=== PATIENT | male | born 1970 | race Caucasian/White ===

== ENCOUNTER 2024-07-15 01:05 | Day surgery (SDC) | payer OTHER, SELFPAY ==
[2024-07-01 13:20] VITALS: BMI 31.2
--- OUTSIDE RECORDS SUMMARY | 2024-07-15 01:08 | XMS_ITS | Continuity of Care Document ---
Author Organization [facility] Address [address] [place] [address] [address] [place] [address] Phone Care Team Providers Care Crm System Administrator Name Role Phone Peyman Martino Unavailable Unavailable Advance Directives Directive Yes / No Effective Date File Name No Information Encounters Encounter Description Practice Location Reason(s) For Visit Diagnoses Date Provider Providers Copied on Encounter [facility], [address] [place] [address] [address], [place], [place], [id number], [place] tel:[phone] [facility] No Information [phone] Doisy Edward. [address] , [address], [place], [address], [place]. tel:[phone] Family History Family Member Type Diagnosis Age At Onset No Information Payers Payer name Insurance type Covered democrat ID Authoriza tion(s) [employer] [id number] Social History Type Description Quantity Date Captured Comments Sex Male Smoking Status No Information Chief Complaint And Reason For Visit No Information Reason For Referral Reason For Referral No Information History Of Present Illness Encounter Date Complaint History Of Prese nt Illness No Information Functional Status Date Functional Assessmen t No Information Instructions Date Instruction Additional Infor mation No Information Assessments Type Assessment Date No Information Patient Care Teams Name Effective Dates (start - stop) Status Members No Information
[2024-07-15 10:02] VITALS: BP 161/87; PULSE 64; RESP 18; TEMP 36.6; O2SAT 100
--- NOTE | 2024-07-15 10:13 | P.PNAN_ITS ---
Anes - Initial Pre Proc Eval Procedure: Operation Date: 07/15/24 11:00 Proposed Procedures p Colonoscopy - Ezra Persaud MD Date/Time: 07/15/24 10:13 Surgeon: Ezra Persaud MD Pre Op Diagnosis: fecal abnormalities Patient Data Age: 54 Gender: M Height: 1.83 m Weight: 103.1 kg Last Vital Signs Temp 36.6 C 07/15/24 10:02 Pulse 64 07/15/24 10:02 Resp 18 07/15/24 10:02 BP 161/87 H 07/15/24 10:02 Pulse Ox 100 07/15/24 10:02 O2 Del Method Room Air 07/15/24 10:02 Allergies Allergy/AdvReac Type Severity Reaction Status Date / Time No Known Allergies Allergy Verified 07/15/24 10:00 Home Medications ?Medication ?Instructions ?Recorded ?Confirmed ?Type metoprolol succinate 100 mg 100 mg PO DAILY 07/01/24 07/15/24 History tablet,extended release 24 hr Patient hx anesthesia problems: none Family hx anesthesia problems: none Results Review: All pre-operative results and documents have been reviewed as part of the pre- operative evaluation. [facility] Social History Social History Smoking status: Never smoker Alcohol intake: current Drinks per week: 12 Substance use type: does not use Living arrangements: with friend(s) Additional living arrangements comments: with sp Anes - Eval Final PreProcedure Day of Procedure 07/15/24 10:13 Patient weight: normal Heart: regular rate and rhythm Lungs: clear to auscultation Airway: Mallampati scale class II Neurological: alert and oriented Last oral intake: >/= 8 hours ASA classification: II Emergent: no Anesthesia type and monitoring: general GIVS and standard monitoring Results Review: All pre-operative results and documents have been reviewed as part of the pre- operative evaluation. Informed Consent: The patient's anesthetic plan and its attendant risks and benefits were discussed with the patient/family/POA. Questions were solicited and answers provided to the satisfaction of the patient/family/POA.
[2024-07-15] MEDS: LACTATED RINGERS 1,000 ML 150 ML IV CONT (10:14)
--- NOTE | 2024-07-15 10:55 | WPDANESEPPF ---
Anes - Initial Pre Proc Eval Procedure: Operation Date: 07/15/24 11:00 Proposed Procedures p Colonoscopy - Ezra Persaud MD Date/Time: 07/15/24 10:55 Surgeon: Ezra Persaud MD Pre Op Diagnosis: fecal abnormalities Patient Data Age: 54 Gender: M Height: 1.83 m Weight: 103.1 kg Last Vital Signs Temp 97.8 F 07/15/24 10:02 Pulse 64 07/15/24 10:02 Resp 18 07/15/24 10:02 BP 161/87 H 07/15/24 10:02 Pulse Ox 100 07/15/24 10:02 O2 Del Method Room Air 07/15/24 10:02 Allergies Allergy/AdvReac Type Severity Reaction Status Date / Time No Known Allergies Allergy Verified 07/15/24 10:00 Home Medications ?Medication ?Instructions ?Recorded ?Confirmed ?Type metoprolol succinate 100 mg 100 mg PO DAILY 07/01/24 07/15/24 History tablet,extended release 24 hr Patient hx anesthesia problems: none Family hx anesthesia problems: none Results Review: All pre-operative results and documents have been reviewed as part of the pre-operative evaluation. [facility] Social History Social History Smoking status: Never smoker Alcohol intake: current Drinks per week: 12 Substance use type: does not use Living arrangements: with friend(s) Additional living arrangements comments: with sp Anes - Eval Final PreProcedure Day of Procedure 07/15/24 10:55 Patient weight: obese Lungs: normal air movement Airway: Mallampati scale class II Neurological: alert and oriented Last oral intake: >/= 8 hours ASA classification: III Emergent: no Anesthetic plan: proceed Anesthesia type and monitoring: general GIVS and standard monitoring Results Review: All pre-operative results and documents have been reviewed as part of the pre-operative evaluation. HTN, on b amaya, DILIP but noncompliant w CPAP. Informed Consent: The patient's anesthetic plan and its attendant risks and benefits were discussed with the patient/family/POA. Questions were solicited and answers provided to the satisfaction of the patient/family/POA.
--- NOTE | 2024-07-15 11:05 | PM.IMHP ---
H&P: HPI History of Present Illness Date/Time: 07/15/24 11:05 Chief Complaint: Positive Cologuard test. Narrative: This is the patient's first colonoscopy. He was found to have a Cologuard positive test. There are no GI symptoms and there is no family history of colorectal cancer. Review of Systems Review of Systems: All systems reviewed & are unremarkable except as noted in HPI and below [facility] Social History Social History Smoking status: Never smoker Alcohol intake: current Drinks per week: 12 Substance use type: does not use Living arrangements: with friend(s) Additional living arrangements comments: with sp Meds Home Medications and Allergies Home Medications ?Medication ?Instructions ?Recorded ?Confirmed ?Type metoprolol succinate 100 mg 100 mg PO DAILY 07/01/24 07/15/24 History tablet,extended release 24 hr Allergies Allergy/AdvReac Type Severity Reaction Status Date / Time No Known Allergies Allergy Verified 07/15/24 10:00 Vital Signs Vital Signs - 24 hr 07/15/24 10:02 Temperature 97.8 F Pulse Rate 64 Respiratory Rate 18 Blood Pressure 161/87 H Pulse Oximetry 100 Oxygen Delivery Room Air Exam Const: General: cooperative and healthy appearing Resp: Effort & Inspection: normal respiratory effort and able to speak in complete sentences Auscultation: clear to auscultation bilaterally Cardio: Rate: regular rate Rhythm: regular rhythm GI: Inspection: normal to inspection GI Palp: No No hepatosplenomegaly present Auscultation: normal bowel sounds Rectal Exam: deferred Skin: General skin exam: normal color Psych: Appearance: grossly normal Mental Status: mental status grossly normal Assessment and Plan Assessment and plan (1) Positive colorectal cancer screening using Cologuard test: Code(s): R19.5 - Other fecal abnormalities Status: Acute Assessment and Plan: The patient is deemed a good candidate for the procedure. Consent signed. Will proceed.
[2024-07-15 11:37] VITALS: BP 131/89; PULSE 70; RESP 18; O2SAT 98
[2024-07-15 11:47] VITALS: BP 133/90; PULSE 65; RESP 22; O2SAT 98
[2024-07-15 11:57] VITALS: BP 144/96; PULSE 61; RESP 26; O2SAT 100
== END 2024-07-15 12:07 | disposition home or self-care (01) ==
PROVIDERS: PCP Family Medicine; Referring Provider Nurse Practitioner; Visit Provider Internal Medicine Gastroenterology
PROC: 0DJD8ZZ Inspection of Lower Intestinal Tract, Via Natural or Artificial Opening Endoscopic (ICD-10-PCS; CPT 45378; principal; 2024-07-15 11:00)
DX: D12.2 Benign neoplasm of ascending colon (principal); K63.5 Polyp of colon; K64.8 Other hemorrhoids; K57.30 Diverticulosis of large intestine without perforation or abscess without bleeding; E66.9 Obesity, unspecified; Z68.30 Body mass index [BMI] 30.0-30.9, adult
CPT/HCPCS: 45385; 88305; J2003; J2704; J7120